=== PATIENT | male | born 1975 | race Two or more races ===

== ENCOUNTER 2021-03-31 12:11 | Emergency (ER) | payer MEDICAID, OTHER ==
[~2021-03-31] VITALS: Ht 167.6 cm; Wt 77.1 kg
[2021-03-31] MEDS ORDERED: LIDOCAINE 1% HCL (LOCAL ANESTH.) INJ 20ML MDV IJ ONE (14:15)
[2021-03-31 14:17] VITALS: BP 118/78
[2021-03-31] MEDS ORDERED: cefTRIAXone SOD 1,000 MG VL IM ONE (14:45)
== END 2021-03-31 14:53 | disposition home or self-care (01) ==
LOC: ER 12:11
DX: L02.413 Cutaneous abscess of right upper limb (principal)
CPT/HCPCS: 10060; 87077; 87186; 87205; 96372; 99283; J0696; J2001

== ENCOUNTER 2021-04-02 08:42 | Emergency (ER) | payer MEDICAID ==
[~2021-04-02] VITALS: Ht 165.1 cm; Wt 77.6 kg
[2021-04-02 11:25] VITALS: BP 136/82
== END 2021-04-02 11:31 | disposition home or self-care (01) ==
LOC: ER 08:42
DX: L02.413 Cutaneous abscess of right upper limb (principal); F17.210 Nicotine dependence, cigarettes, uncomplicated; Z48.817 Encounter for surgical aftercare following surgery on the skin and subcutaneous tissue

== ENCOUNTER 2021-04-04 13:33 | Emergency (ER) | payer MEDICAID ==
[~2021-04-04] VITALS: Ht 165.1 cm; Wt 77.6 kg
[2021-04-04 13:36] VITALS: BP 141/87
== END 2021-04-04 15:09 | disposition home or self-care (01) ==
LOC: ER 13:33
DX: L02.413 Cutaneous abscess of right upper limb (principal)